=== PATIENT | female | born 1945 | race Caucasian/White ===

== ENCOUNTER 2017-09-18 13:55 | Outpatient (CLI) | payer MEDICARE, BC | END 2017-09-18 13:56 | disposition home or self-care (01) | LOC: BICULT 13:55 | PROVIDERS: ATTEND Internal Medicine Infectious Disease | DX: N39.0 Urinary tract infection, site not specified (principal); R32 Unspecified urinary incontinence | CPT/HCPCS: 76770 ==

== ENCOUNTER 2018-04-04 16:56 | Inpatient (IN) | payer MEDICARE, BC ==
[2018-04-04 18:45] LABS: Bilirubin Negative (Negative); Blood, Urine Small (Negative); Clarity CLEAR (Clear); Glucose, Urine (Dipstick) 500 mg/dL (Negative); Leukocyte Moderate (Negative); Nitrite Positive (Negative); Protein, Urine (Dipstick) 30 mg/dL (Neg-Trace); Urobilinogen 0.2 mg/dL (0.2-1.0)
[2018-04-04 18:46] LABS: Bacteria/HPF 4+ HPF (None Seen); Pathc Cast-AUWi Flag 0.43 (0-2.49); Squamous Epithelial None Seen HPF (0-3)
[2018-04-04 18:48] LABS: Hyaline Casts/LPF 0-3 HYALINE CAST LPF (0-3 Hyaline); Specific Gravity, Urine 1.056 (1.002-1.036)
--- NOTE | 2018-04-04 19:43 | PDOC.FPRHP ---
- History of Present Illness ED Course: Patient received Vancomycin, Zosyn, and 30ml/kg bolus. - Allergies/Adverse Reactions Allergies Allergy/AdvReac Type Severity Reaction Status Date / Time acetaminophen Allergy Verified 05/17/15 05:45 [From Darvocet-N 100] erythromycin lactobionate Allergy Verified 05/17/15 05:45 [From Erythrocin] esomeprazole magnesium Allergy Verified 05/17/15 05:45 [From Nexium] fluconazole [From Diflucan] Allergy Verified 05/17/15 05:45 gatifloxacin [From Tequin] Allergy Verified 05/17/15 05:45 lansoprazole [From Prevacid] Allergy Verified 05/17/15 05:45 lisinopril Allergy Verified 05/17/15 05:45 methylprednisolone Allergy Verified 05/17/15 05:45 nitrofurantoin Allergy Verified 05/17/15 05:45 macrocrystalline [From Macrodantin] propoxyphene napsylate Allergy Verified 05/17/15 05:45 [From Darvocet-N 100] Sulfa (Sulfonamide Allergy Verified 05/17/15 05:45 Antibiotics) tetracycline Allergy Verified 05/17/15 05:45 tramadol Allergy Verified 05/17/15 05:45 - Home Medications Medication Instructions Recorded Confirmed Type Aspirin [Ecotrin Low Strength] 81 mg PO DAILY 05/17/15 05/17/15 History Atorvastatin Calcium [Lipitor] 20 mg PO DAILY 05/17/15 05/17/15 History Carvedilol [Coreg] 6.25 mg PO BID 05/17/15 05/17/15 History Cetirizine HCl 10 mg PO DAILY 05/17/15 05/17/15 History Ergocalciferol (Vitamin D2) 400 unit PO DAILY 05/17/15 05/17/15 History [Vitamin D] Estrogens, Conjugated [Premarin] 0.625 mg PO DAILY 05/17/15 05/17/15 History Folic Acid 1 mg PO DAILY 05/17/15 05/17/15 History HumaLOG [HumaLOG Vial] 0 unit SC AC PRN 05/17/15 05/17/15 History Lactobacillus Acidophilus 1 cap PO DAILY 05/17/15 05/17/15 History [Acidophilus] Levothyroxine Sodium [Synthroid] 112 mcg PO DAILY 05/17/15 05/17/15 History Losartan Potassium 100 mg PO DAILY 05/17/15 05/17/15 History Mometasone Furoate [Nasonex] 1 spray EA NARE DAILY 05/17/15 05/17/15 History Montelukast Sodium [Singulair] 10 mg PO DAILY 05/17/15 05/17/15 History Zantac 150 mg PO BID 05/17/15 05/17/15 History diphenhydrAMINE [Benadryl] 25 mg PO Q6HR PRN 05/17/15 05/17/15 History predniSONE [Mert] 2 mg PO DAILY 05/17/15 05/17/15 History Codeine Phosphate/Guaifenesin 5 ml PO Q4HR PRN #0 ml 05/21/15 Rx [Cheratussin AC Syrup] Ertapenem [Invanz] 1 gm IVPB Q24HR #0 vial 05/21/15 Rx Levofloxacin [Levaquin] 500 mg PO DAILY 05/21/15 05/21/15 History Oxybutynin [Ditropan] 5 mg PO Q8H PRN #0 tab 05/21/15 Rx - History PMHx: PSHx: FHx: Social: - Vital signs BP: [] HR: [] RR: [] Tmax: [] Pox: []% on [] Wt: [] FMR H&P: Results - Labs Lab results: Urine Ketones 15 mg/dL (Negative) H 04/04/18 18:30 Urine Blood Small (Negative) H 04/04/18 18:30 Urine Nitrite Positive (Negative) H 04/04/18 18:30 Ur Leukocyte Esterase Moderate (Negative) H 04/04/18 18:30 Urine RBC 4-6 HPF (0-3) 04/04/18 18:30 Urine WBC Greater Than 50-TNTC HPF (0-3) H 04/04/18 18:30 Ur Squamous Epith Cells None Seen HPF (0-3) 04/04/18 18:30 Urine Bacteria 4+ HPF (None Seen) H 04/04/18 18:30 FMR H&P: Upper Level - Plan Date/Time: 04/04/181940 I, [], have evaluated this patient and agree with findings/plan as outlined by procurement internship resident. Pertinent changes/additions are listed here.
[2018-04-04] MEDS ORDERED: Insulin Regular 300 UNITS/3 ML VIAL ONE (21:01)
[2018-04-04] MEDS ORDERED: Acetaminophen 325 MG TAB PO PRN (21:42)
[2018-04-04] MEDS ORDERED: Ondansetron HCl/PF 4 MG/2 ML Vial IVP PRN (21:42)
[2018-04-04] MEDS ORDERED: Ondansetron ODT 4 MG TAB SL PRN (21:42)
[2018-04-04 21:49] VITALS: BMI 31.5
[2018-04-04] MEDS ORDERED: HumaLOG 300 UNITS/3 ML VIAL SC PRN (23:50)
[2018-04-04] MEDS ORDERED: Piperacillin/Tazobactam 3.375 GM in Sodium Chloride 0.9% 100 ML IVPB SCH (23:59)
[2018-04-05] MEDS ORDERED: Dextrose 5% in Water 1,000 ML IV PRN (00:14)
[2018-04-05] MEDS ORDERED: Dextrose 50% Abboject 50 ML SYRINGE IVP PRN (00:14)
[2018-04-05] MEDS ORDERED: VANCOMYCIN IVPB PRN (00:24)
[2018-04-05] MEDS: Sodium Chloride 0.9% 1,000 ML IV SCH ×2 (00:38→17:10)
[2018-04-05] MEDS: Meropenem 500 MG in Sodium Chloride 0.9% 100 ML IVPB SCH ×3 (00:57→17:11)
[2018-04-05] MEDS: Vancomycin HCl 750 MG in Sodium Chloride 0.9% 250 ML 250 ML IVPB SCH (01:53)
[2018-04-05 03:54] LABS: #Eosinphils 0.1 thou/uL (0.0-0.7); #Lymphocytes 2.9 thou/uL (1.20-3.40); #Monocytes 1.2 thou/uL (0.11-0.59); %Basophils 0.2 % (0.0-1.0); %Eosinophils 0.7 % (0.0-10.0); %Lymphocytes 25.7 % (21.0-51.0); %Monocytes 10.4 % (0.0-10.0); Hemoglobin 11.2 g/dL (12.0-16.0); Mean Corpuscular HGB CONC 34.6 g/dL (32.0-36.0); Mean Corpuscular Hemoglobin 30.5 pg (27.0-31.0); Mean Corpuscular Volume 88.1 fL (78.0-98.0); Mean Platelet Volume 8.2 fL (7.4-10.4); Platelet Count 163 thou/uL (130-400); RBC Distribution Width 12.1 % (11.5-14.5); Red Blood Cell (RBC) Count 3.68 mill/uL (4.20-5.40); White Blood Cell (WBC) Count 11.1 thou/uL (4.8-10.8)
[2018-04-05 04:10] LABS: Anion Gap 17 mmol/L (10-20); BUN (Urea Nitrogen) 12 mg/dL (9.8-20.1); Calc. Creatinine Clearance 52 mL/min (70-130); Calcium 8.6 mg/dL (7.8-10.44); Carbon Dioxide 21 mmol/L (23-31); Chloride 97 mmol/L (98-107); Estimated GFR-MDRD 47; Glucose 299 mg/dL (83-110); Potassium 3.9 mmol/L (3.5-5.1); Sodium 131 mmol/L (136-145)
[2018-04-05] MEDS: HumaLOG 300 UNITS/3 ML VIAL SC PRN ×3 (04:23→17:13)
[2018-04-05] MEDS: Levothyroxine Sodium 112 MCG TAB PO SCH (04:24)
[2018-04-05] MEDS ORDERED: Losartan 25 MG TAB PO SCH (09:00)
[2018-04-05] MEDS: Loratadine 10 MG TAB PO SCH (09:13)
[2018-04-05] MEDS: Enoxaparin Sodium 30 MG/0.3 ML SYRINGE SC SCH (09:15)
--- NOTE | 2018-04-05 09:18 | HP ---
PRIMARY CARE PHYSICIAN: Cody Ma M.D. CODE STATUS: FULL CODE. TIME OF EVALUATION: 11:45 p.m. CHIEF COMPLAINT: Fever and chills. HISTORY OF PRESENT ILLNESS: This is a 72-year-old female patient with past medical history of diabetes type 2, hypothyroidism, hyperlipidemia, hypertension , came to the hospital after being found to have fever, chill, generalized weakness, diffuse abdominal pain, the symptoms have been present for about 1 week, has been gradually getting worse, has been reported as severe, no clear triggers, no alleviating factors. She reported that she visited her PCP. She was diagnosed with diverticulitis, started on Cipro. The patient was not getting better, also has reported some cough, with scant sputum production. REVIEW OF SYSTEMS: Constitutional: The patient has fever, chills, generalized weakness. Respiratory: The patient has cough, scant sputum production, shortness of breath. Cardiovascular: No chest pain, palpitation or shortness of breath. Gastrointestinal: The patient has nausea, no vomiting, no diarrhea. HEALTH PROFESSOR: No dizziness, no headache, not feeling lightheaded. Genitourinary: The patient has burning on urination. Extremities: The patient has no leg swelling. All other symptoms are reviewed and negative except for the findings mentioned above. PAST MEDICAL HISTORY: The patient has a history of diabetes type 2, insulin, hypothyroidism, high cholesterol, hypertension, osteoarthritis, psoriasis. PAST SURGICAL HISTORY: Cholecystectomy, hysterectomy. PSYCHIATRIC HISTORY: No previous psychiatric history. SOCIAL HISTORY: No drug use. No smoking, no alcohol. FAMILY HISTORY: The patient reported mother having COPD and the father's history was unknown. ALLERGIES: To DIFLUCAN, ERYTHROMYCIN, LISINOPRIL, MACRODANTIN, METHYLPREDNISOLONE, NEXIUM, PREVACID, TEQUIN, TETRACYCLINE, and TRAMADOL. CURRENT MEDICATIONS: 1. Carvedilol 6.25 mg 2 times a day, losartan 100 mg once a day, Zyrtec 10 mg orally once a day. Synthroid 112 mcg tablet the patient takes 150 mcg orally once a day in the morning. Prednisone 1 mg, the patient takes 5 mg every day. 2. Premarin 0.625 mg orally, the patient takes once at bedtime. 3. Humalog, the patient has a sliding scale for blood sugars over 150. PHYSICAL EXAMINATION: VITAL SIGNS: On presentation, the patient presented with systolic blood pressure 153, diastolic 69, heart rate 78, respiratory rate 14, temperature 99. GENERAL: The patient is alert, she is in distress due to weakness and chills. HEENT: Eye, normal conjunctivae. Moist oral mucosa. Anicteric. NECK: No JVD. RESPIRATORY: Bilateral air entry. No rales, no wheezing. Symmetric expansion. CARDIOVASCULAR: Normal rate, regular rhythm, no gallop, no edema. ABDOMEN: Soft. Normal bowel sounds. MUSCULOSKELETAL: Baseline range of motion and strength. No tenderness. SKIN: Warm and intact. No pallor, no rash except for her psoriasis lesions, that are chronic distributed universally in the skin. NEUROLOGIC: Baseline sensory. No evidence of any new focal weakness. Baseline speech. Cranial nerves seem to be intact. PSYCHIATRIC: Good mood. No anxiety, oriented, optimal judgment. LABORATORY DATA: Reviewed. The patient had a positive urine with white count greater than 50, too numerous to count. As noted, the patient has a previous infection with Escherichia coli ESBL positive. Blood sugar was 132. Hematology : White count 13.2, hemoglobin 13.3, platelet count 120. Chemistry was reviewed. The patient's sodium was 139, potassium 4.2, chloride 90, carbon dioxide 22, anion gap 21, BUN 12, creatinine 1.44, GFR 36, glucose 377, total bilirubin 1.6. RADIOLOGY: Abdomen and pelvis CT findings are suspicious for right-sided pyelonephritis. The chest x-ray was reviewed. The patient had no evidence of acute cardiopulmonary disease. ASSESSMENT AND PLAN: 1. Sepsis. The patient has fever, leukocytosis, source is right-sided pyelonephritis. As noted, the patient has a history of previous cultures positive for Escherichia coli extended spectrum beta-lactamases positive, place the patient on Merrem, we will follow cultures, we will adjust treatment as per sensitivity. 2. Right-sided pyelonephritis as seen in the CT. Treatment as above, hydration as needed. 3. Uncontrolled hypertension, reconciled the medications. We will not treat aggressively since the patient has sepsis, just even as needed. 4. Uncontrolled diabetes, place the patient on sliding scale, reconcile home medications. Diabetic diet. 5. Hypothyroidism, continue hormone replacement. 6. High cholesterol. Low cholesterol diet is advised. 7. Hyponatremia. Sodium is 129, is moderate, will monitor, no need for any acute intervention, the patient received normal saline. 8. Acute kidney injury. The patient has a creatinine of 1.4 and on previous admission was 0.9, there is an increase of more than 0.3 mg/dL from baseline, this is likely secondary to sepsis, could be related to dehydration. We will treat the underlying condition. Monitor creatinine levels. If no improvement, might need Nephrology for assistance with this patient. 9. Deep venous thrombosis prophylaxis. MTDD
[2018-04-05] MEDS ORDERED: Ondansetron HCl/PF 4 MG/2 ML Vial IVP PRN (09:51)
[2018-04-05] MEDS ORDERED: Acetaminophen 325 MG TAB PO PRN (09:52)
--- NOTE | 2018-04-05 12:03 | PDOC.PN ---
- Subjective Encounter Start Date: 04/05/18 Encounter Start Time: 09:20 Subjective: feels weak, has chills+ - Objective Resuscitation Status: Resuscitation Status FULL:Full Resuscitation MAR Reviewed: Yes Vital Signs & Weight: Vital Signs (12 hours) Temp Pulse Resp BP BP Pulse Ox 04/05/18 07:59 99.1 F 77 21 H 94 L 04/05/18 07:26 99.1 F 77 21 H 129/77 94 L 04/05/18 04:32 98.4 F 73 18 139/74 97 Weight Weight 161 lb 5 oz I&O: 04/04/18 04/05/18 04/06/18 06:59 06:59 06:59 Intake Total 1100 Balance 1100 Result Diagrams: 04/05/18 03:26 04/05/18 03:26 Additional Labs: Accuchecks 04/04/18 20:55 POC Glucose 332 H Phys Exam - Physical Examination HEENT: PERRLA, moist MMs Neck: no JVD, supple Respiratory: no wheezing, no rales Cardiovascular: RRR, no significant murmur Gastrointestinal: soft, non-tender, positive bowel sounds Musculoskeletal: no edema, pulses present Neurological: non-focal, moves all 4 limbs Psychiatric: normal affect, A&O x 3 Dx/Plan (1) Sepsis Code(s): A41.9 - SEPSIS, UNSPECIFIED ORGANISM Status: Acute Qualifiers: Sepsis type: Escherichia coli Qualified Code(s): A41.51 - Sepsis due to Escherichia coli [E. coli] (2) UTI (urinary tract infection) Status: Acute Qualifiers: Urinary tract infection type: acute pyelonephritis Qualified Code(s): N10 - Acute pyelonephritis (3) right pyelonephritis Status: Acute (4) HTN (hypertension) Code(s): I10 - ESSENTIAL (PRIMARY) HYPERTENSION Status: Chronic Qualifiers: Hypertension type: essential hypertension Qualified Code(s): I10 - Essential (primary) hypertension (5) Hypothyroidism Code(s): E03.9 - HYPOTHYROIDISM, UNSPECIFIED Status: Chronic Qualifiers: Hypothyroidism type: unspecified Qualified Code(s): E03.9 - Hypothyroidism , unspecified (6) Psoriasis Code(s): L40.9 - PSORIASIS, UNSPECIFIED Status: Chronic Comment: on prednisone along with other immunologic - Plan prior urine cs have grown resistant e.coli strains -: is on meropenem and vanc -: iv fluids -: await full cultures -: post void residual check x2 * . Review of Systems - Medications/Allergies Allergies/Adverse Reactions: Allergies Allergy/AdvReac Type Severity Reaction Status Date / Time acetaminophen Allergy Verified 05/17/15 05:45 [From Darvocet-N 100] erythromycin lactobionate Allergy Verified 05/17/15 05:45 [From Erythrocin] esomeprazole magnesium Allergy Verified 05/17/15 05:45 [From Nexium] fluconazole [From Diflucan] Allergy Verified 05/17/15 05:45 gatifloxacin [From Tequin] Allergy Verified 05/17/15 05:45 lansoprazole [From Prevacid] Allergy Verified 05/17/15 05:45 lisinopril Allergy Verified 05/17/15 05:45 methylprednisolone Allergy Verified 05/17/15 05:45 nitrofurantoin Allergy Verified 05/17/15 05:45 macrocrystalline [From Macrodantin] propoxyphene napsylate Allergy Verified 05/17/15 05:45 [From Darvocet-N 100] Sulfa (Sulfonamide Allergy Verified 05/17/15 05:45 Antibiotics) tetracycline Allergy Verified 05/17/15 05:45 tramadol Allergy Verified 05/17/15 05:45 Medications: Current Medications Acetaminophen (Tylenol) 650 mg PO Q4H PRN PRN Reason: Headache/Fever or Pain Dextrose/Water (Dextrose 50%) 25 gm IVP PRN PRN PRN Reason: HYPOGLYCEMIA PROTOCOL Enoxaparin Sodium (Lovenox) 30 mg SC 0900 [facility] Last Admin: 04/05/18 09:15 Dose: 30 mg Estrogens Conjugated (Premarin) 0.625 mg PO HS [facility] Glucagon (Glucagon) 1 mg IM PRN PRN PRN Reason: HYPOGLYCEMIA PROTOCOL Meropenem 500 mg/ Sodium (Chloride) 100 mls @ 200 mls/hr IVPB 0100,0900,1700 [facility] Last Admin: 04/05/18 10:00 Dose: 100 mls Sodium Chloride (Normal Saline 0.9%) 1,000 mls @ 75 mls/hr IV .[id number] [facility] Last Admin: 04/05/18 00:38 Dose: 1,000 mls Dextrose/Water (D5w) 1,000 mls @ 0 mls/hr IV INF PRN; As Directed PRN Reason: HYPOGLYCEMIA PROTOCOL Vancomycin HCl 750 mg/ Sodium (Chloride) 250 mls @ 250 mls/hr IVPB 0100 [facility] Last Admin: 04/05/18 01:53 Dose: 250 mls Insulin Human Lispro (Humalog) 0 units SC .MODERATE SLIDING SC PRN; Protocol PRN Reason: MODERATE SLIDING SCALE Last Admin: 04/05/18 04:23 Dose: 6 units Levothyroxine Sodium (Synthroid) 112 mcg PO 0600 [facility] Last Admin: 04/05/18 04:24 Dose: 112 mcg Loratadine (Claritin) 10 mg PO DAILY [facility] Last Admin: 04/05/18 09:13 Dose: 10 mg Miscellaneous Medication (Pharmacy To Dose) 1 each IVPB PRN PRN PRN Reason: SEPSIS Ondansetron HCl (Zofran) 4 mg IVP Q6H PRN PRN Reason: Nausea/Vomiting Last Admin: 04/05/18 10:00 Dose: 4 mg Sodium Chloride (Flush - Normal Saline) 10 ml IVF Q12HR [facility] Sodium Chloride (Flush - Normal Saline) 10 ml IVF PRN PRN PRN Reason: Saline Flush
[2018-04-05] MEDS ORDERED: Vancomycin HCl 750 MG in Sodium Chloride 0.9% 250 ML 250 ML IVPB SCH (18:00)
[2018-04-06] MEDS: Meropenem 500 MG in Sodium Chloride 0.9% 100 ML IVPB SCH ×2 (00:17→08:03)
[2018-04-06] MEDS: Vancomycin HCl 750 MG in Sodium Chloride 0.9% 250 ML 250 ML IVPB SCH (01:01)
[2018-04-06] MEDS: Levothyroxine Sodium 112 MCG TAB PO SCH (05:42)
[2018-04-06] MEDS: Sodium Chloride 0.9% 1,000 ML IV SCH ×2 (05:43→09:50)
[2018-04-06] MEDS: HumaLOG 300 UNITS/3 ML VIAL SC PRN ×3 (06:00→18:15)
[2018-04-06] MEDS: Enoxaparin Sodium 30 MG/0.3 ML SYRINGE SC SCH (08:03)
[2018-04-06] MEDS: Loratadine 10 MG TAB PO SCH (08:03)
[2018-04-06 08:19] LABS: Hemoglobin 10.9 g/dL (12.0-16.0); Mean Corpuscular HGB CONC 35.8 g/dL (32.0-36.0); Mean Corpuscular Hemoglobin 31.4 pg (27.0-31.0); Mean Corpuscular Volume 87.9 fL (78.0-98.0); Mean Platelet Volume 8.5 fL (7.4-10.4); Platelet Count 190 thou/uL (130-400); Red Blood Cell (RBC) Count 3.46 mill/uL (4.20-5.40); White Blood Cell (WBC) Count 8.3 thou/uL (4.8-10.8)
[2018-04-06 08:33] LABS: Anion Gap 15 mmol/L (10-20); BUN (Urea Nitrogen) 6 mg/dL (9.8-20.1); Calc. Creatinine Clearance 66 mL/min (70-130); Calcium 8.5 mg/dL (7.8-10.44); Carbon Dioxide 23 mmol/L (23-31); Chloride 101 mmol/L (98-107); Estimated GFR-MDRD 62; Glucose 191 mg/dL (83-110); Potassium 3.6 mmol/L (3.5-5.1); Sodium 135 mmol/L (136-145)
[2018-04-06 08:59] LABS: MDiff Complete? YES
[2018-04-06 09:00] LABS: Band 6 % (5-11); Eosinophils 2 % (0-10); Lymphocytes 26 % (21-51); Monocytes 9 % (0-10); Neutrophil 56 % (42-75); PLT Morphology Comment Appears Adequate; Polychromasia SLIGHT = 2-3 cells (100X) (0-2/hpf)
[2018-04-06] MEDS: predniSONE 5 MG TAB PO SCH (09:50)
[2018-04-06] MEDS: Carvedilol 6.25 MG TAB PO SCH ×2 (09:50→22:43)
--- NOTE | 2018-04-06 11:45 | PDOC.PN ---
- Subjective Encounter Start Date: 04/06/18 Encounter Start Time: 11:00 Subjective: is amb in room, feels better -: has cough and sinus symptoms - Objective Resuscitation Status: Resuscitation Status FULL:Full Resuscitation MAR Reviewed: Yes Vital Signs & Weight: Vital Signs (12 hours) Temp Pulse Resp BP BP Pulse Ox 04/06/18 09:50 154/73 H 04/06/18 08:02 99.9 F H 72 20 154/73 H 94 L 04/06/18 08:00 99.9 F H 72 20 94 L Weight Weight 161 lb 5 oz I&O: 04/05/18 04/06/18 04/07/18 06:59 06:59 06:59 Intake Total 1100 1570 Balance 1100 1570 Result Diagrams: 04/06/18 08:07 04/06/18 08:07 Additional Labs: Accuchecks 04/06/18 04/06/18 04/05/18 11:13 05:40 21:26 POC Glucose 269 H 229 H 269 H 04/05/18 04/05/18 16:46 12:03 POC Glucose 295 H 249 H Phys Exam - Physical Examination HEENT: PERRLA, moist MMs Neck: no JVD, supple Respiratory: no wheezing, no rales Cardiovascular: RRR, no significant murmur Gastrointestinal: soft, non-tender, positive bowel sounds Musculoskeletal: no edema, pulses present Neurological: non-focal, moves all 4 limbs Psychiatric: normal affect, A&O x 3 Dx/Plan (1) Sepsis Code(s): A41.9 - SEPSIS, UNSPECIFIED ORGANISM Status: Acute Qualifiers: Sepsis type: Escherichia coli Qualified Code(s): A41.51 - Sepsis due to Escherichia coli [E. coli] (2) UTI (urinary tract infection) Status: Acute Qualifiers: Urinary tract infection type: acute pyelonephritis Qualified Code(s): N10 - Acute pyelonephritis (3) right pyelonephritis Status: Acute (4) HTN (hypertension) Code(s): I10 - ESSENTIAL (PRIMARY) HYPERTENSION Status: Chronic Qualifiers: Hypertension type: essential hypertension Qualified Code(s): I10 - Essential (primary) hypertension (5) Hypothyroidism Code(s): E03.9 - HYPOTHYROIDISM, UNSPECIFIED Status: Chronic Qualifiers: Hypothyroidism type: unspecified Qualified Code(s): E03.9 - Hypothyroidism , unspecified (6) Psoriasis Code(s): L40.9 - PSORIASIS, UNSPECIFIED Status: Chronic Comment: on prednisone along with other immunologic - Plan await final cultures -: is on meropenem due to prior e.coli resistance -: ID consultation -: continue coreg, prednisone and dc iv fluids * . Review of Systems - Medications/Allergies Allergies/Adverse Reactions: Allergies Allergy/AdvReac Type Severity Reaction Status Date / Time acetaminophen Allergy Verified 05/17/15 05:45 [From Darvocet-N 100] erythromycin lactobionate Allergy Verified 05/17/15 05:45 [From Erythrocin] esomeprazole magnesium Allergy Verified 05/17/15 05:45 [From Nexium] fluconazole [From Diflucan] Allergy Verified 05/17/15 05:45 gatifloxacin [From Tequin] Allergy Verified 05/17/15 05:45 lansoprazole [From Prevacid] Allergy Verified 05/17/15 05:45 lisinopril Allergy Verified 05/17/15 05:45 methylprednisolone Allergy Verified 05/17/15 05:45 nitrofurantoin Allergy Verified 05/17/15 05:45 macrocrystalline [From Macrodantin] propoxyphene napsylate Allergy Verified 05/17/15 05:45 [From Darvocet-N 100] Sulfa (Sulfonamide Allergy Verified 05/17/15 05:45 Antibiotics) tetracycline Allergy Verified 05/17/15 05:45 tramadol Allergy Verified 05/17/15 05:45 Medications: Current Medications Acetaminophen (Tylenol) 650 mg PO Q4H PRN PRN Reason: Headache/Fever or Pain Carvedilol (Coreg) 6.25 mg PO BID [facility] Last Admin: 04/06/18 09:50 Dose: 6.25 mg Dextrose/Water (Dextrose 50%) 25 gm IVP PRN PRN PRN Reason: HYPOGLYCEMIA PROTOCOL Enoxaparin Sodium (Lovenox) 30 mg SC 0900 [facility] Last Admin: 04/06/18 08:03 Dose: 30 mg Estrogens Conjugated (Premarin) 0.625 mg PO HS [facility] Last Admin: 04/05/18 20:17 Dose: 0.625 mg Glucagon (Glucagon) 1 mg IM PRN PRN PRN Reason: HYPOGLYCEMIA PROTOCOL Meropenem 500 mg/ Sodium (Chloride) 100 mls @ 200 mls/hr IVPB 0100,0900,1700 [facility] Last Admin: 04/06/18 08:03 Dose: 100 mls Sodium Chloride (Normal Saline 0.9%) 1,000 mls @ 75 mls/hr IV .[id number] [facility] Last Admin: 04/06/18 09:50 Dose: 1,000 mls Dextrose/Water (D5w) 1,000 mls @ 0 mls/hr IV INF PRN; As Directed PRN Reason: HYPOGLYCEMIA PROTOCOL Insulin Human Lispro (Humalog) 0 units SC .MODERATE SLIDING SC PRN; Protocol PRN Reason: MODERATE SLIDING SCALE Last Admin: 04/06/18 06:00 Dose: 4 units Levothyroxine Sodium (Synthroid) 112 mcg PO 0600 [facility] Last Admin: 04/06/18 05:42 Dose: 112 mcg Loratadine (Claritin) 10 mg PO DAILY [facility] Last Admin: 04/06/18 08:03 Dose: 10 mg Ondansetron HCl (Zofran) 4 mg IVP Q6H PRN PRN Reason: Nausea/Vomiting Last Admin: 04/05/18 10:00 Dose: 4 mg Prednisone (Prednisone) 5 mg PO DAILY [facility] Last Admin: 04/06/18 09:50 Dose: 5 mg Sodium Chloride (Flush - Normal Saline) 10 ml IVF Q12HR [facility] Last Admin: 04/06/18 08:03 Dose: Not Given Sodium Chloride (Flush - Normal Saline) 10 ml IVF PRN PRN PRN Reason: Saline Flush
[2018-04-06] MEDS ORDERED: MEROPENEM 1 GM/50 ML 1 GM in Premix Bag 1 BAG IVPB SCH (14:00)
[2018-04-06] MEDS: MEROPENEM 1 GM/50 ML 1 GM in Premix Bag 1 BAG IVPB SCH (16:27)
[2018-04-07] MEDS: MEROPENEM 1 GM/50 ML 1 GM in Premix Bag 1 BAG IVPB SCH ×3 (00:50→16:33)
[2018-04-07 03:52] LABS: #Eosinphils 0.1 thou/uL (0.0-0.7); #Lymphocytes 2.8 thou/uL (1.20-3.40); #Monocytes 0.6 thou/uL (0.11-0.59); #Neutrophils 3.3 thou/uL (1.40-6.50); %Basophils 0.7 % (0.0-1.0); %Eosinophils 1.6 % (0.0-10.0); %Lymphocytes 41.1 % (21.0-51.0); %Monocytes 9.1 % (0.0-10.0); %Neutrophils 47.6 % (42.0-75.0); Hemoglobin 10.3 g/dL (12.0-16.0); Mean Corpuscular HGB CONC 35.5 g/dL (32.0-36.0); Mean Corpuscular Hemoglobin 31.1 pg (27.0-31.0); Mean Corpuscular Volume 87.8 fL (78.0-98.0); Mean Platelet Volume 7.9 fL (7.4-10.4); Platelet Count 189 thou/uL (130-400); RBC Distribution Width 11.9 % (11.5-14.5); White Blood Cell (WBC) Count 6.9 thou/uL (4.8-10.8)
[2018-04-07 04:11] LABS: Anion Gap 16 mmol/L (10-20); BUN (Urea Nitrogen) 8 mg/dL (9.8-20.1); Calc. Creatinine Clearance 69 mL/min (70-130); Calcium 8.5 mg/dL (7.8-10.44); Carbon Dioxide 21 mmol/L (23-31); Chloride 102 mmol/L (98-107); Estimated GFR-MDRD 65; Glucose 313 mg/dL (83-110); Potassium 3.4 mmol/L (3.5-5.1); Sodium 136 mmol/L (136-145)
[2018-04-07] MEDS: Levothyroxine Sodium 112 MCG TAB PO SCH (06:29)
[2018-04-07] MEDS: HumaLOG 300 UNITS/3 ML VIAL SC PRN ×2 (06:38→17:14)
[2018-04-07] MEDS: Enoxaparin Sodium 30 MG/0.3 ML SYRINGE SC SCH (07:56)
[2018-04-07] MEDS: predniSONE 5 MG TAB PO SCH (07:57)
[2018-04-07] MEDS: Loratadine 10 MG TAB PO SCH (07:57)
[2018-04-07] MEDS: Carvedilol 6.25 MG TAB PO SCH ×2 (08:07→21:37)
--- NOTE | 2018-04-07 14:02 | PDOC.PN ---
- Subjective Encounter Start Date: 04/07/18 Encounter Start Time: 09:50 -: old records requested/rev Pt seen and examined, chart reviewed in its entirety, this is my first visit with this patient very talkative. concerned about psoriasis and PICC lie, reassured location is fine. No F/c,no N/V/d/C. tolerating Meropenem okay All systems reviewed and neg for all except as stated above - Objective Resuscitation Status: Resuscitation Status FULL:Full Resuscitation MAR Reviewed: Yes Vital Signs & Weight: Vital Signs (12 hours) Temp Pulse Resp BP BP Pulse Ox 04/07/18 09:00 98.5 F 61 20 124/73 99 04/07/18 08:07 159/80 H 04/07/18 08:00 98.4 F 66 16 97 Weight Weight 161 lb 5 oz I&O: 04/06/18 04/07/18 04/08/18 06:59 06:59 06:59 Intake Total 1570 1669 600 Balance 1570 1669 600 Result Diagrams: 04/07/18 03:30 04/07/18 03:30 Additional Labs: Accuchecks 04/07/18 04/07/18 04/06/18 11:31 06:35 20:12 POC Glucose 295 H 245 H 335 H 04/06/18 17:15 POC Glucose 406 H Radiology Reviewed by me: Yes EKG Reviewed by me: Yes Phys Exam - Physical Examination Constitutional: NAD HEENT: PERRLA, moist MMs, sclera anicteric, oral pharynx no lesions Neck: no nodes, no JVD, supple, full ROM Respiratory: no wheezing, no rales, no rhonchi, clear to auscultation bilateral Cardiovascular: RRR, no significant murmur, no rub Gastrointestinal: soft, non-tender, no distention, positive bowel sounds Musculoskeletal: no edema, pulses present Neurological: non-focal, normal sensation, moves all 4 limbs Lymphatic: no nodes Psychiatric: normal affect, A&O x 3 Skin: normal turgor, cap refill <2 seconds Deviation from normal: psoriaform rash on left lateral elbow, right arm, bilateral legs Dx/Plan (1) Sepsis Code(s): A41.9 - SEPSIS, UNSPECIFIED ORGANISM Status: Acute Qualifiers: Sepsis type: Escherichia coli Qualified Code(s): A41.51 - Sepsis due to Escherichia coli [E. coli] Comment: MDR, sensitive only to zosyn, AG, Carbapenems. should only need 14 days IV rx, will defer to ID. PICC monday (2) UTI (urinary tract infection) Status: Acute Qualifiers: Urinary tract infection type: acute pyelonephritis Qualified Code(s): N10 - Acute pyelonephritis (3) HTN (hypertension) Code(s): I10 - ESSENTIAL (PRIMARY) HYPERTENSION Status: Chronic Qualifiers: Hypertension type: essential hypertension Qualified Code(s): I10 - Essential (primary) hypertension (4) Hypothyroidism Code(s): E03.9 - HYPOTHYROIDISM, UNSPECIFIED Status: Chronic Qualifiers: Hypothyroidism type: unspecified Qualified Code(s): E03.9 - Hypothyroidism , unspecified (5) Psoriasis Code(s): L40.9 - PSORIASIS, UNSPECIFIED Status: Chronic Comment: on prednisone along with other immunologic - Plan * .
[2018-04-08] MEDS: MEROPENEM 1 GM/50 ML 1 GM in Premix Bag 1 BAG IVPB SCH ×3 (00:52→17:24)
[2018-04-08 05:01] LABS: #Basophils 0.1 thou/uL (0.0-0.2); #Eosinphils 0.1 thou/uL (0.0-0.7); #Lymphocytes 3.1 thou/uL (1.20-3.40); #Monocytes 0.5 thou/uL (0.11-0.59); #Neutrophils 2.5 thou/uL (1.40-6.50); %Basophils 0.8 % (0.0-1.0); %Eosinophils 1.4 % (0.0-10.0); %Lymphocytes 49.4 % (21.0-51.0); %Monocytes 7.5 % (0.0-10.0); %Neutrophils 40.9 % (42.0-75.0); Hemoglobin 10.2 g/dL (12.0-16.0); Mean Corpuscular HGB CONC 34.7 g/dL (32.0-36.0); Mean Corpuscular Hemoglobin 30.5 pg (27.0-31.0); Mean Platelet Volume 8.5 fL (7.4-10.4); Platelet Count 198 thou/uL (130-400); RBC Distribution Width 12.1 % (11.5-14.5); Red Blood Cell (RBC) Count 3.33 mill/uL (4.20-5.40); White Blood Cell (WBC) Count 6.2 thou/uL (4.8-10.8)
[2018-04-08 05:12] LABS: Anion Gap 14 mmol/L (10-20); BUN (Urea Nitrogen) 7 mg/dL (9.8-20.1); Calc. Creatinine Clearance 77 mL/min (70-130); Calcium 8.9 mg/dL (7.8-10.44); Carbon Dioxide 23 mmol/L (23-31); Chloride 102 mmol/L (98-107); Estimated GFR-MDRD 74; Glucose 206 mg/dL (83-110); Magnesium 1.4 mg/dL (1.6-2.6); Potassium 3.4 mmol/L (3.5-5.1); Sodium 136 mmol/L (136-145)
[2018-04-08] MEDS: Levothyroxine Sodium 112 MCG TAB PO SCH (06:27)
[2018-04-08] MEDS: Loratadine 10 MG TAB PO SCH (07:41)
[2018-04-08] MEDS: Carvedilol 6.25 MG TAB PO SCH ×2 (07:41→22:04)
[2018-04-08] MEDS: Enoxaparin Sodium 30 MG/0.3 ML SYRINGE SC SCH (07:41)
[2018-04-08] MEDS: predniSONE 5 MG TAB PO SCH (07:42)
[2018-04-08] MEDS: HumaLOG 300 UNITS/3 ML VIAL SC PRN ×2 (12:06→17:24)
--- NOTE | 2018-04-08 15:45 | PDOC.PN ---
- Subjective Encounter Start Date: 04/08/18 Encounter Start Time: 10:15 Pt feeling better. right FA IV not functioning well. has LN in left AC fossa. no F/C, no n/V/d/c, manan abx well,no itching or rash all systems reviewed and neg x as above - Objective Resuscitation Status: Resuscitation Status FULL:Full Resuscitation MAR Reviewed: Yes Vital Signs & Weight: Vital Signs (12 hours) Temp Pulse Resp BP BP Pulse Ox 04/08/18 08:00 97.3 F L 59 L 20 97 04/08/18 07:41 139/59 L 04/08/18 06:58 97.3 F L 59 L 20 173/89 H 97 Weight Weight 161 lb 5 oz I&O: 04/07/18 04/08/18 04/09/18 06:59 06:59 06:59 Intake Total 1669 840 480 Balance 1669 840 480 Result Diagrams: 04/08/18 03:17 04/08/18 03:17 Additional Labs: Accuchecks 04/08/18 04/07/18 04/07/18 11:14 20:19 16:43 POC Glucose 346 H 302 H 357 H Phys Exam - Physical Examination Constitutional: NAD HEENT: PERRLA, moist MMs, sclera anicteric, oral pharynx no lesions Neck: no nodes, no JVD, supple, full ROM Respiratory: no wheezing, no rales, no rhonchi, clear to auscultation bilateral Cardiovascular: RRR, no significant murmur, no rub Gastrointestinal: soft, non-tender, no distention, positive bowel sounds Musculoskeletal: no edema, pulses present Neurological: non-focal, normal sensation, moves all 4 limbs Lymphatic: no nodes one enlarged note just proximal to left AC psoriasis Psychiatric: normal affect, A&O x 3 Skin: normal turgor, cap refill <2 seconds Dx/Plan (1) Sepsis Code(s): A41.9 - SEPSIS, UNSPECIFIED ORGANISM Status: Acute Qualifiers: Sepsis type: Escherichia coli Qualified Code(s): A41.51 - Sepsis due to Escherichia coli [E. coli] Comment: MDR, sensitive only to zosyn, AG, Carbapenems. should only need 14 days IV rx, will defer to ID. PICC monday (2) UTI (urinary tract infection) Status: Acute Qualifiers: Urinary tract infection type: acute pyelonephritis Qualified Code(s): N10 - Acute pyelonephritis (3) HTN (hypertension) Code(s): I10 - ESSENTIAL (PRIMARY) HYPERTENSION Status: Chronic Qualifiers: Hypertension type: essential hypertension Qualified Code(s): I10 - Essential (primary) hypertension (4) Hypothyroidism Code(s): E03.9 - HYPOTHYROIDISM, UNSPECIFIED Status: Chronic Qualifiers: Hypothyroidism type: unspecified Qualified Code(s): E03.9 - Hypothyroidism , unspecified (5) Psoriasis Code(s): L40.9 - PSORIASIS, UNSPECIFIED Status: Chronic Comment: on prednisone along with other immunologic - Plan cont current plan of care, continue antibiotics, out of bed/ambulate * .
[2018-04-09] MEDS: MEROPENEM 1 GM/50 ML 1 GM in Premix Bag 1 BAG IVPB SCH ×3 (01:40→16:37)
[2018-04-09] MEDS: Levothyroxine Sodium 112 MCG TAB PO SCH (05:44)
[2018-04-09] MEDS: predniSONE 5 MG TAB PO SCH (08:09)
[2018-04-09] MEDS: Loratadine 10 MG TAB PO SCH (08:10)
[2018-04-09] MEDS: Carvedilol 6.25 MG TAB PO SCH (08:11)
[2018-04-09] MEDS: Enoxaparin Sodium 30 MG/0.3 ML SYRINGE SC SCH (08:14)
[2018-04-09 08:27] VITALS: BP 159/65; TEMP 98.5
--- NOTE | 2018-04-09 11:16 | PDOC.EVN ---
Event Note - Event Note Event Note: PATIENT SEEN AND EXAMINED. SHE UNDERSTANDS THAT THE PLAN IS FOR PICC LINE TODAY WITH IV ANTIBIOTICS UNTIL 8 AT HOME. DISCUSSED WITH CM AND NURSING. PICC AROUND 1:00 TODAY. CM WORKING ON GETTING MEDS FOR HOME. ANTICIPATE DISCHARGE LATER TODAY ONCE ARRANGED.
[2018-04-09] MEDS: HumaLOG 300 UNITS/3 ML VIAL SC PRN (13:31)
--- NOTE | 2018-04-09 15:48 | SPC ---
ULTRASOUND-GUIDED LEFT UPPER EXTREMITY PICC PLACEMENT: 04/09/2018 HISTORY: Sepsis. Urinary tract infection. COMPARISON: None. TECHNIQUE/FINDINGS: Informed consent obtained prior to the procedure. The left antecubital fossa is prepped and draped i n the normal sterile fashion, and the skin overlying the basilic vein was anesthetized with 1% buffer ed Lidocaine. With direct sonographic guidance, vascular access is obtained via the left basilic vei n, and an 0.018 wire is advanced to the IVC and subsequently retracted to the cavoatrial junction. I ntravascular length is calculated at 42 cm, and the PICC is cut accordingly. The needle was removed and replaced with a peel-away sheath. The PICC was advanced over the wire. The wire and peel-away s lisa were removed. The catheter flushes well and is ready for use, with the distal tip at the level of the cavoatrial junction. EXPOSURE DATA: 0.2 minutes of fluoroscopic time 563 mGy per cm2 IMPRESSION: Successful placement of left upper extremity peripherally inserted central catheter with ultrasound g uidance and fluoroscopic guidance. POS: JOVANNY
[2018-04-09] MEDS ORDERED: Heparin 1,000 UNITS/ML VIAL ONE (17:40)
--- NOTE | 2018-04-10 00:31 | DIS ---
DATE OF ADMISSION: 04/04/2018 DATE OF DISCHARGE: 04/09/2018 DISCHARGE DIAGNOSES: 1. Sepsis. 2. Right-sided pyelonephritis. 3. Urinary tract infection with resistant Escherichia coli. 4. Acute renal injury. 5. Diabetes mellitus. 6. Hypothyroidism. 7. Hyperlipidemia. 8. Hyponatremia. 9. Psoriasis. 10. Mild immunosuppression secondary to corticosteroids. HISTORY: This patient is a 72-year-old female, who has a history of some recurrent infections, who i s followed by Dr. Cody Ma. The patient was having some abdominal pain and fever. She saw Dr. Lester bautista, who diagnosed her with diverticulitis. She was given oral Cipro and did have some improvemen t; however, at the end of her course of treatment, she developed recurrences of abdominal pain and fe thelma and presented via the emergency department. There the patient had a temperature of 99. Exam is somewhat unremarkable. She did have a urine and had 50 to too numerous to count white blood cells. White count was 13.2. BUN was 12, creatinine was 1.4, glucose was 377. A CT scan of the abdomen and pelvis was suspicious for right-sided pyelonephritis. HOSPITAL COURSE: The patient had a history of ESBL Escherichia coli. Therefore, she was started on meropenem. Subsequent cultures did return an E. coli, which was not ESBL, but was highly resistant. She was hydrated and had some improvement of mild hyponatremia. She was maintained on meropenem and Infectious Disease was consulted. The plan was for the patient to have a PICC line placed and IV an tibiotics at home; however, over the weekend made that impossible logistically and the patient stayed until today. The patient's symptoms improved and ultimately resolved. PHYSICAL EXAMINATION: VITAL SIGNS: On the day of discharge, temperature was 98.5, pulse 68, respirations 18, BP was 159/65 . GENERAL: She was awake, alert, oriented, and in no distress. HEART was regular, without murmur. LUNGS: Clear bilaterally. ABDOMEN: Soft, nontender. EXTREMITIES: Warm and dry. Her labs on the were notable for a white count of 6.2 and a hemoglobin of 10. Her sodium was 13 6, potassium 3.4, creatinine was down to 0.77. Her blood sugars were running somewhat elevated, but the patient was convinced that this was related to her being on a different diet and she was confiden t that she was going to be able to manage these numbers when she got home and was able to manage her own insulin and her own diet. With that the patient did have the PICC line placed on the and e was felt to be stable for discharge to home. DISPOSITION: The patient will be discharged to home with home health. She has a PICC line and will be receiving Invanz 1 gram IV every day until 05/19/2018. She will continue with her other usual [facility] medications to include her insulin sliding scale, Premarin, Zyrtec, Coreg, Synthroid, prednisone, l osartan. She is to be on a diabetic diet and her activity level is as tolerated. She is encouraged to follow up with Dr. Ma next week and to return to the emergency department should she have any problems prior to that time.
== END 2018-04-09 18:00 | disposition home health service (06) | DRG 872 ==
LOC: ERS 16:56 → T4-A 20:40
PROVIDERS: ADMIT Emergency Medicine; ATTEND Emergency Medicine
PROC: 02HV33Z Insertion of Infusion Device into Superior Vena Cava, Percutaneous Approach (ICD-10-PCS; principal; 2018-04-09)
PROC: B548ZZA Ultrasonography of Superior Vena Cava, Guidance (ICD-10-PCS; 2018-04-09)
DX: A41.9 Sepsis, unspecified organism (principal); N17.9 Acute kidney failure, unspecified; N12 Tubulo-interstitial nephritis, not specified as acute or chronic; E87.1 Hypo-osmolality and hyponatremia; B96.20 Unspecified Escherichia coli [E. coli] as the cause of diseases classified elsewhere; E11.9 Type 2 diabetes mellitus without complications; E03.9 Hypothyroidism, unspecified; E78.5 Hyperlipidemia, unspecified; L40.9 Psoriasis, unspecified; I10 Essential (primary) hypertension
CPT/HCPCS: 36415; 36416; 36569; 80048; 83735; 85025; 87077; 87086; 87186; 96365; 96366; A4216; C1751; J1644; J1650; J1815; J2185; J2405; J3370; J7050; Q0162

== ENCOUNTER 2019-09-18 07:23 | Outpatient (CLI) | payer MEDICARE, BC ==
--- NOTE | 2019-09-18 15:51 | NM ---
NUCLEAR MEDICINE GASTRIC EMPTYING SCAN WITH MEAL 09/18/19 INDICATION: History of early satiety. RADIOPHARMACEUTICAL: 2.1 millicuries of technetium 99m Sulfur colloid orally in egg. FINDINGS: At the 30 minute time gladis there is 33% emptying is present. At the 1 hour time gladis there is 60% emptying. At the 2 hour time gladis there is 95% emptying. At the 3 hour time gladis there is 98% emptying. The T1/2 is 53 minutes. IMPRESSION: Gastric emptying study as above with normal gastric emptying. POS: OFF
== END 2019-09-18 07:24 | disposition home or self-care (01) ==
LOC: NM 07:23
PROVIDERS: ATTEND Internal Medicine Gastroenterology
DX: R68.81 Early satiety (principal); E11.9 Type 2 diabetes mellitus without complications
CPT/HCPCS: 78264; A9541

== ENCOUNTER 2019-11-19 08:08 | Outpatient (CLI) | payer MEDICARE, BC ==
--- NOTE | 2019-11-19 13:10 | CT ---
CT Abdomen Pelvis W Con HISTORY: Abdominal pain, nausea COMPARISON: 04/04/2018 and 01/15/2019 FINDINGS: The lung bases are unremarkable. There are changes of cirrhosis of the liver without focal mass or abnormal biliary ductal dilatation. The patient is status postcholecystectomy. The spleen measures 14.2 cm in AP dimension. The pancreas, adrenal glands and kidneys are unremarkable. No free air, free fluid or lymphadenopathy seen in the abdomen or pelvis. There are vascular calcific ations without evidence of aneurysmal dilatation of the abdominal aorta. Degenerative changes are present in the spine. The left-sided calcific densities adjacent to the left ureter are again seen an d likely represent phleboliths. IMPRESSION: 1. Cirrhosis of the liver 2. Splenomegaly 3. No acute process
[2019-11-19] MEDS ORDERED: Iopamidol-370 76% 500 ML 1 ML ONE (14:44)
== END 2019-11-19 08:09 | disposition home or self-care (01) ==
LOC: BICCT 08:08
PROVIDERS: ATTEND Internal Medicine Gastroenterology
DX: R10.9 Unspecified abdominal pain (principal); R11.0 Nausea; K74.60 Unspecified cirrhosis of liver; R16.1 Splenomegaly, not elsewhere classified
CPT/HCPCS: 74177; 82565; Q9967

== ENCOUNTER 2020-09-22 07:51 | Outpatient (CLI) | payer MEDICARE, BC ==
--- NOTE | 2020-09-22 08:45 | ULT ---
Exam is hepatic Doppler ultrasound HISTORY: Cirrhosis. COMPARISON: None TECHNIQUE: Grayscale, color flow, Doppler imaging of the liver is performed FINDINGS: The head and proximal body of the pancreas have a normal echotexture Gallbladder surgically absent Heterogeneous echotexture liver is presumed to be due to hepatocellular disease. Limited evaluation f or hepatic masses and intrahepatic biliary dilatation. Contour of the hepatic margin is maintained. Right hepatic lobe measures 17.8 cm Spleen has a normal echotexture, measuring 11 cm in maximum dimension Hepatic Doppler: Patency and appropriate directional flow in the main portal vein, left portal vein, right portal vein, left hepatic vein, right hepatic vein and middle hepatic vein. Hepatic artery is patent. Splenic vein and artery are patent IMPRESSION: 1. Hepatomegaly. Heterogeneous echotexture of the liver compatible with hepatocellular disease. 2. Normal hepatic Doppler.
== END 2020-09-22 07:52 | disposition home or self-care (01) ==
LOC: BICULT 07:51
PROVIDERS: ATTEND Physician Assistant Medical
DX: K74.60 Unspecified cirrhosis of liver (principal); K21.9 Gastro-esophageal reflux disease without esophagitis; K31.1 Adult hypertrophic pyloric stenosis; E10.65 Type 1 diabetes mellitus with hyperglycemia; R16.0 Hepatomegaly, not elsewhere classified
CPT/HCPCS: 76705

== ENCOUNTER 2022-07-02 18:36 | Inpatient (IN) | payer MEDICARE, BC ==
[2022-07-02] MEDS ORDERED: Ondansetron ODT 4 MG TAB SL PRN (23:00)
[2022-07-02] MEDS ORDERED: Ondansetron PF 4 MG/2 ML Vial IVP PRN (23:00)
[2022-07-02 23:18] VITALS: BMI 29.9
[2022-07-03] MEDS ORDERED: Ondansetron PF 4 MG/2 ML Vial IVP PRN (01:08)
[2022-07-03] MEDS ORDERED: Ondansetron ODT 4 MG TAB PO PRN (01:08)
[2022-07-03] MEDS ORDERED: Dextrose 5% in Water 1,000 ML IV PRN (01:08)
[2022-07-03] MEDS ORDERED: Dextrose 50% Abboject 50 ML SYRINGE SLOW IVP PRN (01:08)
[2022-07-03] MEDS: Sodium Chloride 0.9% 1,000 ML IV SCH ×3 (01:44→17:33)
[2022-07-03] MEDS: HumaLOG 300 UNITS/3 ML VIAL SC PRN (03:39)
[2022-07-03] MEDS: cefTRIAXone\\ROCEPHIN 2 GM in Sodium Chloride 0.9% 100 ML IVPB SCH (03:39)
[2022-07-03] MEDS: Acetaminophen 325 MG TAB PO PRN ×5 (03:39→20:58)
[2022-07-03] MEDS ORDERED: Melatonin 3 MG TAB PO PRN (04:37)
[2022-07-03] MEDS: Levothyroxine 150 MCG TAB PO SCH (04:46)
[2022-07-03 07:01] LABS: Iron 15 ug/dL (50-170); Iron Binding Capacity, Total 245 mcg/dL (265-497)
[2022-07-03 07:11] LABS: Anion Gap 14 mmol/L (10-20); BUN (Urea Nitrogen) 21 mg/dL (9.8-20.1); Calc. Creatinine Clearance 45 mL/min (70-130); Calcium 8.1 mg/dL (7.8-10.44); Carbon Dioxide 21 mmol/L (23-31); Chloride 103 mmol/L (98-107); Estimated GFR 46; Glucose 162 mg/dL (83-110); Iron 15 ug/dL (50-170); Iron Binding Capacity, Total 250 mcg/dL (265-497); Potassium 3.9 mmol/L (3.5-5.1); Sodium 134 mmol/L (136-145)
[2022-07-03 07:23] LABS: Hemoglobin 8.8 g/dL (12.0-16.0); Mean Corpuscular HGB CONC 33.3 g/dL (32.0-36.0); Mean Corpuscular Hemoglobin 29.3 pg (27.0-31.0); Mean Corpuscular Volume 88.2 fL (78.0-98.0); Mean Platelet Volume 9.3 fL (7.4-10.4); Platelet Count 110 thou/uL (130-400); RBC Distribution Width 12.5 % (11.5-14.5); Red Blood Cell (RBC) Count 3.01 mill/uL (4.20-5.40); White Blood Cell (WBC) Count 9.5 thou/uL (4.8-10.8)
[2022-07-03 07:24] LABS: #Monocytes 0.8 thou/uL (0.11-0.59); #Neutrophils 7.7 thou/uL (1.40-6.50); %Basophils 0.1 % (0.0-1.0); %Eosinophils 0.2 % (0.0-10.0); %Lymphocytes 10.2 % (21.0-51.0); %Monocytes 8.5 % (0.0-10.0); %Neutrophils 81.1 % (42.0-75.0); Ferritin 153.87 ng/mL (10-291)
[2022-07-03] MEDS: Gabapentin 100 MG CAP PO SCH ×3 (08:16→20:57)
[2022-07-03 09:47] LABS: Platelet Morphology Comment Appears Decreased; RBC Morphology Normal
[2022-07-03] MEDS ORDERED: Sodium Chloride 0.9% 500 ML IV SCH (16:45)
[2022-07-03] MEDS: Fentanyl 100 MCG/2 ML VIAL SLOW IVP PRN (17:20)
[2022-07-03] MEDS: Rosuvastatin 20 MG TAB PO SCH (20:57)
[2022-07-03] MEDS: Famotidine/PF 20 mg/2ml Vial SLOW IVP SCH (20:57)
[2022-07-04] MEDS: Sodium Chloride 0.9% 1,000 ML IV SCH ×4 (00:49→23:59)
[2022-07-04] MEDS: Acetaminophen 325 MG TAB PO PRN ×4 (00:49→20:12)
[2022-07-04] MEDS: Levothyroxine 150 MCG TAB PO SCH (04:56)
[2022-07-04] MEDS: cefTRIAXone\\ROCEPHIN 2 GM in Sodium Chloride 0.9% 100 ML IVPB SCH (04:56)
[2022-07-04] MEDS: Fentanyl 100 MCG/2 ML VIAL SLOW IVP PRN (05:41)
[2022-07-04 06:26] LABS: #Eosinphils 0.1 thou/uL (0.0-0.7); #Lymphocytes 1.5 thou/uL (1.20-3.40); #Monocytes 0.8 thou/uL (0.11-0.59); #Neutrophils 5.7 thou/uL (1.40-6.50); %Basophils 0.1 % (0.0-1.0); %Eosinophils 0.7 % (0.0-10.0); %Lymphocytes 18.2 % (21.0-51.0); %Monocytes 9.8 % (0.0-10.0); %Neutrophils 71.2 % (42.0-75.0); Hemoglobin 8.8 g/dL (12.0-16.0); Mean Corpuscular HGB CONC 33.1 g/dL (32.0-36.0); Mean Corpuscular Hemoglobin 29.2 pg (27.0-31.0); Mean Corpuscular Volume 88.5 fL (78.0-98.0); Mean Platelet Volume 9.1 fL (7.4-10.4); Platelet Count 117 thou/uL (130-400); RBC Distribution Width 12.5 % (11.5-14.5); Red Blood Cell (RBC) Count 3.01 mill/uL (4.20-5.40)
[2022-07-04 06:34] LABS: Anion Gap 14 mmol/L (10-20); BUN (Urea Nitrogen) 15 mg/dL (9.8-20.1); Calc. Creatinine Clearance 44 mL/min (70-130); Calcium 8.2 mg/dL (7.8-10.44); Carbon Dioxide 18 mmol/L (23-31); Chloride 106 mmol/L (98-107); Estimated GFR 45; Glucose 175 mg/dL (83-110); Potassium 3.8 mmol/L (3.5-5.1); Sodium 134 mmol/L (136-145)
[2022-07-04] MEDS: Gabapentin 100 MG CAP PO SCH ×3 (09:34→20:12)
[2022-07-04] MEDS: predniSONE 5 MG TAB PO SCH (09:34)
[2022-07-04] MEDS: Aspirin 81 mg Enteric Coated Tablet PO SCH (09:36)
[2022-07-04] MEDS ORDERED: AFRIN NASAL MIST 15 ML BOT NS PRN (10:54)
[2022-07-04] MEDS ORDERED: Bisacodyl 5 MG TAB PO PRN (10:54)
[2022-07-04] MEDS ORDERED: Senokot S 8.6-50 MG TAB PO SCH (11:00)
[2022-07-04] MEDS ORDERED: Polyethylene Glycol 3350 17 GM Packet PO SCH (11:00)
[2022-07-04] MEDS ORDERED: Carvedilol 6.25 MG TAB PO SCH ×2 (11:00→21:00)
[2022-07-04 12:12] LABS: Free T4 (Free Thyroxine) 1.67 ng/dL (0.70-1.48)
[2022-07-04] MEDS: HumaLOG 300 UNITS/3 ML VIAL SC PRN (18:17)
[2022-07-04] MEDS: Rosuvastatin 20 MG TAB PO SCH (20:11)
[2022-07-04] MEDS: Carvedilol 6.25 MG TAB PO SCH (20:12)
[2022-07-04] MEDS: Loratadine 10 MG TAB PO SCH (20:12)
[2022-07-04] MEDS: Senokot S 8.6-50 MG TAB PO SCH (20:12)
[2022-07-04] MEDS: Polyethylene Glycol 3350 17 GM Packet PO SCH (20:13)
[2022-07-04] MEDS ORDERED: Oxymetazoline HCl 0.05% (30 ML BOT) NS PRN (20:15)
[2022-07-04] MEDS: Famotidine/PF 20 mg/2ml Vial SLOW IVP SCH (20:21)
[2022-07-04] MEDS ORDERED: Guaifenesin DM 100-10/5 ML UDCUP PO PRN (22:29)
[2022-07-04] MEDS: GUAIFENESIN DM SF 5 ML UDCUP PO PRN (23:58)
[2022-07-05] MEDS: Acetaminophen 325 MG TAB PO PRN ×2 (00:10→05:26)
[2022-07-05] MEDS: cefTRIAXone\\ROCEPHIN 2 GM in Sodium Chloride 0.9% 100 ML IVPB SCH (05:25)
[2022-07-05] MEDS: Levothyroxine 150 MCG TAB PO SCH (05:25)
[2022-07-05] MEDS: Sodium Chloride 0.9% 1,000 ML IV SCH (05:26)
[2022-07-05] MEDS: GUAIFENESIN DM SF 5 ML UDCUP PO PRN ×2 (05:32→12:08)
[2022-07-05 06:39] LABS: #Eosinphils 0.1 thou/uL (0.0-0.7); #Lymphocytes 1.8 thou/uL (1.20-3.40); #Monocytes 0.8 thou/uL (0.11-0.59); #Neutrophils 4.2 thou/uL (1.40-6.50); %Basophils 0.1 % (0.0-1.0); %Lymphocytes 26.2 % (21.0-51.0); %Monocytes 11.2 % (0.0-10.0); %Neutrophils 61.5 % (42.0-75.0); Hemoglobin 8.8 g/dL (12.0-16.0); Mean Corpuscular HGB CONC 32.4 g/dL (32.0-36.0); Mean Corpuscular Hemoglobin 28.7 pg (27.0-31.0); Mean Corpuscular Volume 88.4 fL (78.0-98.0); Mean Platelet Volume 8.9 fL (7.4-10.4); Platelet Count 140 thou/uL (130-400); RBC Distribution Width 12.5 % (11.5-14.5); Red Blood Cell (RBC) Count 3.07 mill/uL (4.20-5.40); White Blood Cell (WBC) Count 6.8 thou/uL (4.8-10.8)
[2022-07-05 07:01] LABS: ALT (SGPT) 13 U/L (8-55); AST (SGOT) 21 U/L (5-34); Alkaline Phosphatase 106 U/L (40-110); Anion Gap 12 mmol/L (10-20); BUN (Urea Nitrogen) 13 mg/dL (9.8-20.1); Bilirubin, Total 0.5 mg/dL (0.2-1.2); Calc. Creatinine Clearance 44 mL/min (70-130); Calcium 8.7 mg/dL (7.8-10.44); Carbon Dioxide 21 mmol/L (23-31); Chloride 105 mmol/L (98-107); Estimated GFR 45; Globulin 3.2 g/dL (2.4-3.5); Glucose 221 mg/dL (83-110); Potassium 3.9 mmol/L (3.5-5.1); Protein, Total 6.2 g/dL (5.8-8.1); Sodium 134 mmol/L (136-145)
[2022-07-05] MEDS: Carvedilol 6.25 MG TAB PO SCH ×2 (08:38→21:13)
[2022-07-05] MEDS: Enoxaparin Sodium 40 MG/0.4 ML SYRINGE SC SCH (08:38)
[2022-07-05] MEDS: Aspirin 81 mg Enteric Coated Tablet PO SCH (08:38)
[2022-07-05] MEDS: predniSONE 5 MG TAB PO SCH (08:39)
[2022-07-05] MEDS: Gabapentin 100 MG CAP PO SCH (08:39)
[2022-07-05] MEDS: Polyethylene Glycol 3350 17 GM Packet PO SCH ×2 (08:39→21:14)
[2022-07-05] MEDS: Senokot S 8.6-50 MG TAB PO SCH ×2 (08:39→21:15)
[2022-07-05] MEDS: HumaLOG 300 UNITS/3 ML VIAL SC PRN ×3 (12:08→21:23)
[2022-07-05] MEDS ORDERED: Gabapentin 300 MG CAP PO SCH (12:45)
[2022-07-05] MEDS ORDERED: Losartan 25 MG TAB PO SCH (15:00)
[2022-07-05] MEDS ORDERED: Furosemide 20 MG/2 ML VIAL SLOW IVP SCH (17:15)
[2022-07-05] MEDS ORDERED: Labetalol HCl 100 MG/20 ML VIAL ONE (18:07)
[2022-07-05] MEDS: Rosuvastatin 20 MG TAB PO SCH (21:13)
[2022-07-05] MEDS: Gabapentin 300 MG CAP PO SCH (21:14)
[2022-07-05] MEDS: Loratadine 10 MG TAB PO SCH (21:14)
[2022-07-06] MEDS: cefTRIAXone\\ROCEPHIN 2 GM in Sodium Chloride 0.9% 100 ML IVPB SCH (05:04)
[2022-07-06] MEDS: Levothyroxine Sodium 125 MCG TAB PO SCH (05:05)
[2022-07-06] MEDS ORDERED: Acetaminophen 325 MG TAB PO PRN (06:28)
[2022-07-06] MEDS: GUAIFENESIN DM SF 5 ML UDCUP PO PRN (06:44)
[2022-07-06 06:59] LABS: ALT (SGPT) 15 U/L (8-55); AST (SGOT) 23 U/L (5-34); Albumin 3.3 g/dL (3.4-4.8); Alkaline Phosphatase 123 U/L (40-110); Anion Gap 16 mmol/L (10-20); BUN (Urea Nitrogen) 12 mg/dL (9.8-20.1); Bilirubin, Total 0.6 mg/dL (0.2-1.2); Calc. Creatinine Clearance 42 mL/min (70-130); Calcium 9.4 mg/dL (7.8-10.44); Carbon Dioxide 21 mmol/L (23-31); Chloride 100 mmol/L (98-107); Estimated GFR 42; Globulin 3.5 g/dL (2.4-3.5); Glucose 164 mg/dL (83-110); Potassium 3.5 mmol/L (3.5-5.1); Protein, Total 6.8 g/dL (5.8-8.1); Sodium 133 mmol/L (136-145)
[2022-07-06] MEDS: Carvedilol 6.25 MG TAB PO SCH ×2 (08:12→20:26)
[2022-07-06] MEDS: Senokot S 8.6-50 MG TAB PO SCH ×2 (08:12→20:28)
[2022-07-06] MEDS: Gabapentin 300 MG CAP PO SCH ×2 (08:13→20:26)
[2022-07-06] MEDS: predniSONE 5 MG TAB PO SCH (08:13)
[2022-07-06] MEDS: Polyethylene Glycol 3350 17 GM Packet PO SCH ×2 (08:13→21:22)
[2022-07-06] MEDS: Enoxaparin Sodium 40 MG/0.4 ML SYRINGE SC SCH (08:13)
[2022-07-06] MEDS: Aspirin 81 mg Enteric Coated Tablet PO SCH (08:13)
[2022-07-06] MEDS: Losartan 25 MG TAB PO SCH (08:13)
[2022-07-06] MEDS ORDERED: Cefepime 2 GM in Sodium Chloride 0.9% 100 ML IVPB SCH (12:00)
[2022-07-06] MEDS: HumaLOG 300 UNITS/3 ML VIAL SC PRN ×3 (12:14→20:30)
[2022-07-06] MEDS ORDERED: Potassium Chloride 20 MEQ TAB PO SCH (12:15)
[2022-07-06 12:43] LABS: Hemoglobin A1c 11.3 % (4.0-6.0)
[2022-07-06] MEDS: Loratadine 10 MG TAB PO SCH (20:28)
[2022-07-06] MEDS: Rosuvastatin 20 MG TAB PO SCH (20:29)
[2022-07-06] MEDS: Famotidine 20 MG TAB PO SCH (20:36)
[2022-07-07] MEDS ORDERED: cefTRIAXone\\ROCEPHIN 2 GM in Sodium Chloride 0.9% 100 ML IVPB SCH (05:00)
[2022-07-07] MEDS: Levothyroxine Sodium 125 MCG TAB PO SCH (05:10)
[2022-07-07] MEDS: Bisacodyl 5 MG TAB PO PRN (05:14)
[2022-07-07] MEDS: HumaLOG 300 UNITS/3 ML VIAL SC PRN ×4 (05:20→20:32)
[2022-07-07 05:53] LABS: #Eosinphils 0.2 thou/uL (0.0-0.7); #Lymphocytes 2.1 thou/uL (1.20-3.40); #Monocytes 0.6 thou/uL (0.11-0.59); #Neutrophils 4.2 thou/uL (1.40-6.50); %Basophils 0.6 % (0.0-1.0); %Eosinophils 3.1 % (0.0-10.0); %Lymphocytes 29.6 % (21.0-51.0); %Monocytes 8.8 % (0.0-10.0); Mean Corpuscular Hemoglobin 28.9 pg (27.0-31.0); Mean Corpuscular Volume 87.5 fL (78.0-98.0); Mean Platelet Volume 8.2 fL (7.4-10.4); Platelet Count 207 thou/uL (130-400); RBC Distribution Width 12.6 % (11.5-14.5); White Blood Cell (WBC) Count 7.2 thou/uL (4.8-10.8)
[2022-07-07 06:21] LABS: AST (SGOT) 22 U/L (5-34); Anion Gap 14 mmol/L (10-20); Bilirubin, Total 0.4 mg/dL (0.2-1.2); Calc. Creatinine Clearance 43 mL/min (70-130); Calcium 8.8 mg/dL (7.8-10.44); Carbon Dioxide 26 mmol/L (23-31); Chloride 103 mmol/L (98-107); Estimated GFR 43; Potassium 3.8 mmol/L (3.5-5.1); Sodium 139 mmol/L (136-145)
[2022-07-07 06:27] LABS: Albumin 3.2 g/dL (3.4-4.8); Globulin 2.7 g/dL (2.4-3.5); Glucose 186 mg/dL (83-110)
[2022-07-07 06:29] LABS: Alkaline Phosphatase 127 U/L (40-110)
[2022-07-07 06:30] LABS: BUN (Urea Nitrogen) 15 mg/dL (9.8-20.1)
[2022-07-07 06:32] LABS: ALT (SGPT) 12 U/L (8-55)
[2022-07-07 06:33] LABS: Magnesium 1.5 mg/dL (1.6-2.6)
[2022-07-07] MEDS: Gabapentin 300 MG CAP PO SCH ×2 (08:07→20:30)
[2022-07-07] MEDS: Senokot S 8.6-50 MG TAB PO SCH ×2 (08:08→20:31)
[2022-07-07] MEDS: predniSONE 5 MG TAB PO SCH (08:08)
[2022-07-07] MEDS: Carvedilol 6.25 MG TAB PO SCH ×2 (08:08→20:30)
[2022-07-07] MEDS: Enoxaparin Sodium 40 MG/0.4 ML SYRINGE SC SCH (08:08)
[2022-07-07] MEDS: Aspirin 81 mg Enteric Coated Tablet PO SCH (08:08)
[2022-07-07] MEDS: Losartan 25 MG TAB PO SCH (08:08)
[2022-07-07] MEDS: Polyethylene Glycol 3350 17 GM Packet PO SCH ×2 (08:09→21:04)
[2022-07-07] MEDS ORDERED: Magnesium 2 GM/50 ML(in water) 2 GM in Premix Bag 1 BAG IVPB SCH (12:32)
[2022-07-07] MEDS: Famotidine 20 MG TAB PO SCH (20:30)
[2022-07-07] MEDS: Loratadine 10 MG TAB PO SCH (20:30)
[2022-07-07] MEDS: Rosuvastatin 20 MG TAB PO SCH (20:30)
[2022-07-08] MEDS: Bisacodyl 5 MG TAB PO PRN (00:14)
[2022-07-08] MEDS: Levothyroxine Sodium 125 MCG TAB PO SCH (05:32)
[2022-07-08] MEDS: HumaLOG 300 UNITS/3 ML VIAL SC PRN ×2 (05:33→13:25)
[2022-07-08 05:51] LABS: #Eosinphils 0.2 thou/uL (0.0-0.7); #Lymphocytes 2.6 thou/uL (1.20-3.40); #Monocytes 0.7 thou/uL (0.11-0.59); #Neutrophils 3.9 thou/uL (1.40-6.50); %Basophils 0.6 % (0.0-1.0); %Lymphocytes 35.2 % (21.0-51.0); %Monocytes 8.7 % (0.0-10.0); %Neutrophils 52.5 % (42.0-75.0); Hemoglobin 9.4 g/dL (12.0-16.0); Mean Corpuscular HGB CONC 32.4 g/dL (32.0-36.0); Mean Corpuscular Hemoglobin 28.4 pg (27.0-31.0); Mean Corpuscular Volume 87.6 fL (78.0-98.0); Mean Platelet Volume 8.1 fL (7.4-10.4); Platelet Count 240 thou/uL (130-400); RBC Distribution Width 12.9 % (11.5-14.5); Red Blood Cell (RBC) Count 3.33 mill/uL (4.20-5.40); White Blood Cell (WBC) Count 7.5 thou/uL (4.8-10.8)
[2022-07-08 06:19] LABS: ALT (SGPT) 13 U/L (8-55); AST (SGOT) 20 U/L (5-34); Albumin 3.3 g/dL (3.4-4.8); Alkaline Phosphatase 126 U/L (40-110); Anion Gap 13 mmol/L (10-20); BUN (Urea Nitrogen) 13 mg/dL (9.8-20.1); Bilirubin, Total 0.4 mg/dL (0.2-1.2); Calc. Creatinine Clearance 40 mL/min (70-130); Calcium 9.2 mg/dL (7.8-10.44); Carbon Dioxide 29 mmol/L (23-31); Chloride 99 mmol/L (98-107); Estimated GFR 40; Globulin 3.5 g/dL (2.4-3.5); Glucose 266 mg/dL (83-110); Magnesium 1.9 mg/dL (1.6-2.6); Potassium 3.7 mmol/L (3.5-5.1); Protein, Total 6.8 g/dL (5.8-8.1); Sodium 137 mmol/L (136-145)
[2022-07-08] MEDS ORDERED: Hydrochlorothiazide 25 MG TAB PO SCH (09:00)
[2022-07-08] MEDS: Carvedilol 6.25 MG TAB PO SCH (09:32)
[2022-07-08] MEDS: Losartan 25 MG TAB PO SCH (09:32)
[2022-07-08] MEDS: Senokot S 8.6-50 MG TAB PO SCH (09:32)
[2022-07-08] MEDS: Gabapentin 300 MG CAP PO SCH (09:33)
[2022-07-08] MEDS: Aspirin 81 mg Enteric Coated Tablet PO SCH (09:33)
[2022-07-08] MEDS: predniSONE 5 MG TAB PO SCH (09:33)
[2022-07-08] MEDS: Enoxaparin Sodium 40 MG/0.4 ML SYRINGE SC SCH (09:34)
[2022-07-08] MEDS: Polyethylene Glycol 3350 17 GM Packet PO SCH (09:34)
[2022-07-08 14:42] VITALS: BP 146/87; TEMP 98.3
== END 2022-07-08 15:20 | disposition home or self-care (01) | DRG 871 ==
LOC: 2NO 18:36 → T4-A 22:50
PROVIDERS: ADMIT Internal Medicine; ATTEND Internal Medicine
DX: A41.9 Sepsis, unspecified organism (principal); J18.9 Pneumonia, unspecified organism; J96.01 Acute respiratory failure with hypoxia; K31.1 Adult hypertrophic pyloric stenosis; N12 Tubulo-interstitial nephritis, not specified as acute or chronic; E87.1 Hypo-osmolality and hyponatremia; J90 Pleural effusion, not elsewhere classified; N39.3 Stress incontinence (female) (male); E78.5 Hyperlipidemia, unspecified; E03.9 Hypothyroidism, unspecified; M19.90 Unspecified osteoarthritis, unspecified site; L40.9 Psoriasis, unspecified; K76.0 Fatty (change of) liver, not elsewhere classified; D51.0 Vitamin B12 deficiency anemia due to intrinsic factor deficiency; N18.30 Chronic kidney disease, stage 3 unspecified; E11.22 Type 2 diabetes mellitus with diabetic chronic kidney disease; I12.9 Hypertensive chronic kidney disease with stage 1 through stage 4 chronic kidney disease, or unspecified chronic kidney disease; D69.6 Thrombocytopenia, unspecified; K59.00 Constipation, unspecified; D63.1 Anemia in chronic kidney disease; R05.9 Cough, unspecified; E11.40 Type 2 diabetes mellitus with diabetic neuropathy, unspecified; R33.9 Retention of urine, unspecified; E88.09 Other disorders of plasma-protein metabolism, not elsewhere classified; Z20.822 Contact with and (suspected) exposure to COVID-19; Z88.1 Allergy status to other antibiotic agents; Z88.8 Allergy status to other drugs, medicaments and biological substances; Z88.2 Allergy status to sulfonamides; Z88.6 Allergy status to analgesic agent; Z79.899 Other long term (current) drug therapy; Z79.4 Long term (current) use of insulin; Z79.890 Hormone replacement therapy; Z79.82 Long term (current) use of aspirin; Z90.49 Acquired absence of other specified parts of digestive tract; Z90.710 Acquired absence of both cervix and uterus; Z90.89 Acquired absence of other organs; Z83.6 Family history of other diseases of the respiratory system; Z82.49 Family history of ischemic heart disease and other diseases of the circulatory system
CPT/HCPCS: 36415; 36416; 71046; 71250; 74018; 76770; 80048; 80053; 82607; 82728; 83036; 83540; 83550; 83735; 83880; 84145; 84439; 84443; 84481; 85025; 87086; 93306; J0696; J1650; J1815; J1940; J2405; J3010; J3475; J3490; J7030; J7050; J7512; S0028; U0003; U0005

== ENCOUNTER 2023-07-26 11:01 | Outpatient (CLI) | payer MEDICARE, BC | END 2023-07-26 11:02 | disposition home or self-care (01) | LOC: BICMAMMO 11:01 | PROVIDERS: ATTEND Internal Medicine Endocrinology, Diabetes & Metabolism | DX: Z12.31 Encounter for screening mammogram for malignant neoplasm of breast (principal); Z85.828 Personal history of other malignant neoplasm of skin; Z91.89 Other specified personal risk factors, not elsewhere classified | CPT/HCPCS: 77063; 77067 ==

== ENCOUNTER 2023-09-13 12:11 | Outpatient (CLI) | payer MEDICARE, BC | END 2023-09-13 12:12 | disposition home or self-care (01) | LOC: BICULT 12:11 | PROVIDERS: ATTEND Physician Assistant Medical | DX: K74.60 Unspecified cirrhosis of liver (principal); K76.9 Liver disease, unspecified | CPT/HCPCS: 76705 ==

== ENCOUNTER 2023-09-13 12:12 | Outpatient (CLI) | payer MEDICARE, BC | END 2023-09-13 12:13 | disposition home or self-care (01) | LOC: BICMAMMO 12:12 | PROVIDERS: ATTEND Internal Medicine Endocrinology, Diabetes & Metabolism | DX: Z13.820 Encounter for screening for osteoporosis (principal); E89.41 Symptomatic postprocedural ovarian failure | CPT/HCPCS: 77080 ==

== ENCOUNTER 2024-04-02 13:34 | Outpatient (CLI) | payer MEDICARE, BC | END 2024-04-02 13:35 | disposition home or self-care (01) | LOC: BICULT 13:34 | PROVIDERS: ATTEND Physician Assistant Medical | DX: K59.09 Other constipation (principal); K31.1 Adult hypertrophic pyloric stenosis; K74.60 Unspecified cirrhosis of liver; Z90.49 Acquired absence of other specified parts of digestive tract | CPT/HCPCS: 76705 ==

== ENCOUNTER 2024-04-10 12:06 | Outpatient (CLI) | payer MEDICARE, BC | END 2024-04-10 12:07 | disposition home or self-care (01) | LOC: BICULT 12:06 | PROVIDERS: ATTEND Internal Medicine Nephrology | DX: N18.30 Chronic kidney disease, stage 3 unspecified (principal) | CPT/HCPCS: 76770 ==

== ENCOUNTER 2024-10-11 08:49 | Outpatient (CLI) | payer MEDICARE, BC | END 2024-10-11 08:50 | disposition home or self-care (01) | LOC: BICULT 08:49 | PROVIDERS: ATTEND Physician Assistant Medical | DX: K21.9 Gastro-esophageal reflux disease without esophagitis (principal); K76.89 Other specified diseases of liver; D73.89 Other diseases of spleen | CPT/HCPCS: 76705 ==

== ENCOUNTER 2024-10-31 11:13 | Outpatient (CLI) | payer MEDICARE, BC | END 2024-10-31 11:14 | disposition home or self-care (01) | LOC: RAD 11:13 | PROVIDERS: ATTEND Internal Medicine Critical Care Medicine | DX: R06.00 Dyspnea, unspecified (principal) | CPT/HCPCS: 71046 ==